=== PATIENT | female | born 1975 | race Caucasian/White ===

== ENCOUNTER 2021-01-31 09:04 | Emergency (ER) | payer MEDICAID ==
[~2021-01-31] VITALS: Ht 167.6 cm; Wt 104.3 kg
[2021-01-31 09:12] VITALS: BP 176/114
--- NOTE | 2021-01-31 09:23 | NUR ---
Pt bib self for swelling to bilateral jaw area since 1400 yesterday. Per pt she was eating nachos and drinking a watermelon drink when pt noticed immediate swelling. Per pt, denies any changes to enviornment. Denies any allergies. Denies difficulty breathing and swallowing. Pt awake and alert. Awaiting for ERMD to evaluate pt. Allergies: NKA Med hx: none
--- NOTE | 2021-01-31 10:29 | NUR ---
Throat Culture and Strept collected and sent to lab
[2021-01-31] MEDS ORDERED: AMOX-1000 PO (11:27)
[2021-01-31 11:34] VITALS: BP 164/100
== END 2021-01-31 11:34 | disposition home or self-care (01) ==
LOC: MED 09:04
DX: J03.90 Acute tonsillitis, unspecified (principal); Z79.899 Other long term (current) drug therapy
CPT/HCPCS: 87081; 99283